=== PATIENT | female | born 2000 | race Caucasian/White ===

== ENCOUNTER 2022-04-22 16:14 | Outpatient (CLI) | payer OTHER, SELFPAY | END 2022-04-22 16:15 | disposition home or self-care (01) | PROVIDERS: PCP Family Medicine; Visit Provider Family Medicine | DX: Z00.00 Encounter for general adult medical examination without abnormal findings (principal); R53.83 Other fatigue; R63.5 Abnormal weight gain; Z13.1 Encounter for screening for diabetes mellitus | CPT/HCPCS: 87624; 88175 ==

== ENCOUNTER 2022-04-24 16:22 | Outpatient (CLI) | payer OTHER, SELFPAY ==
[2022-04-24 11:28] LABS: Cholesterol* 175 mg/dL (90-199); Glucose* 108 mg/dL (60-115); Triglycerides* 217 mg/dL (40-149)
[2022-04-24 11:29] LABS: HDL Cholesterol* 34 mg/dL (>=50); LDL Cholesterol Calculated 98 mg/dL (<100)
== END 2022-04-24 16:23 | disposition home or self-care (01) ==
PROVIDERS: PCP Family Medicine; Visit Provider Family Medicine
DX: R63.5 Abnormal weight gain (principal); Z13.1 Encounter for screening for diabetes mellitus; Z13.6 Encounter for screening for cardiovascular disorders
CPT/HCPCS: 80061; 82947; 84443